=== PATIENT | female | born 1975 | race Caucasian/White ===

== ENCOUNTER 2023-11-03 06:13 | Inpatient (IN) | payer OTHER ==
[~2023-11-03] VITALS: Ht 170.2 cm; Wt 81.2 kg
[2023-11-03 07:17] LABS: BASOPHILS # (AUTO) 0.1 K/uL (0.00-0.22); BASOPHILS % (AUTO) 0.8 % (0.0-2.0); EOSINOPHILS # (AUTO) 0.4 K/uL (0-0.4); EOSINOPHILS % (AUTO) 6.1 % (0.0-4.0); HEMATOCRIT 37.4 % (36-48); HEMOGLOBIN 12.8 g/dL (12.0-16.0); LYMPHOCYTES # (AUTO) 3.4 K/uL (2.5-16.5); LYMPHOCYTES % (AUTO) 49.5 % (20.5-51.1); MEAN CORPUSCULAR HEMOGLOBIN 29 pg (27-31); MEAN CORPUSCULAR HGB CONC 34 g/dL (33-37); MEAN CORPUSCULAR VOLUME 85.2 fL (80-94); MONOCYTES # (AUTO) 0.4 K/uL (0.8-1.0); MONOCYTES % (AUTO) 5.1 % (1.7-9.3); NEUTROPHILS # (AUTO) 2.7 K/uL (1.8-7.7); NEUTROPHILS % (AUTO) 38.5 % (42.2-75.2); PLATELET COUNT (AUTO) 262 K/uL (140-450); RED BLOOD CELL COUNT(AUTO) 4.39 MIL/uL (4.20-5.40); RED CELL DISTRIBUTION WIDTH 12.5 % (11.6-13.7); WHITE BLOOD COUNT (AUTO) 6.9 K/uL (4.8-10.8)
[2023-11-03] MEDS: fentaNYL citrate 0.05 MG/ML VIAL ONE (07:48)
[2023-11-03] MEDS: MIDAZOLAM 2 MG/2 ML VIAL ONE (07:48)
[2023-11-03 08:03] LABS: CALCIUM 9.1 mg/dL (8.5-10.1); CARBON DIOXIDE 28.5 mmol/L (21-32); CREATININE 0.9 mg/dL (0.6-1.3); POTASSIUM 3.5 mmol/L (3.5-5.1)
[2023-11-03 08:10] LABS: ALBUMIN 3.5 g/dL (3.4-5.0); TOTAL BILIRUBIN 0.6 mg/dL (0.0-1.0)
[2023-11-03] MEDS ORDERED: SEVOFLURANE 250 ML BTL INH ONE (08:10)
[2023-11-03] MEDS: LIDOCAINE MPF 2% 100 MG/5 ML VIAL INJ ONE (08:39)
[2023-11-03] MEDS: ROCURONIUM 50 MG/5 ML VIAL IV ONE ×3 (08:39→09:38)
[2023-11-03] MEDS: PROPOFOL 200 MG/20 ML VIAL IV ONE (08:39)
[2023-11-03] MEDS: METOCLOPRAMIDE 10 MG/2 ML INJ VIAL ONE (08:40)
[2023-11-03] MEDS: ONDANSETRON 4 MG/2 ML VIAL ONE (08:40)
[2023-11-03] MEDS: KETOROLAC 30 MG/ML VIAL ONE (08:40)
[2023-11-03] MEDS: MEDS-TO-BEDS MC SCH (09:00)
[2023-11-03] MEDS: GLYCOPYRROLATE 0.2 MG/ML VIAL ONE (09:02)
[2023-11-03] MEDS: EPINEPHrine 1 MG/ML AMP ONE (09:05)
[2023-11-03] MEDS ORDERED: diphenhydrAMINE 50 MG/ML VIAL IVP PRN (09:40)
[2023-11-03] MEDS ORDERED: MEPERIDINE 25 MG/ML SYR IVP PRN (09:40)
[2023-11-03] MEDS: LACTATED RINGERS 1,000 ML IV SCH (09:40)
[2023-11-03] MEDS ORDERED: ONDANSETRON 4 MG/2 ML VIAL IVP PRN (09:40)
[2023-11-03] MEDS: HYDROmorphone PFS 2 MG/ML SYR ONE (10:48)
[2023-11-03] MEDS: HYDROmorphone 1 MG/ML AMP IVP PRN (10:48)
[2023-11-03 11:40] VITALS: BP 130/70; PULSE 79; RESP 18; TEMP 97; O2SAT 96
[2023-11-03 16:00] VITALS: BP 131/67; PULSE 71; RESP 18; TEMP 97.3; O2SAT 96
[2023-11-03 20:00] VITALS: BP 133/62; PULSE 80; RESP 18; TEMP 98.3; O2SAT 94
[2023-11-04 08:00] VITALS: BP 134/72; PULSE 80; PULSE 89; RESP 18; TEMP 97.5; TEMP 98.3; O2SAT 94; O2SAT 97
[2023-11-04] MEDS: oxyCODONE/APAP 5/325 MG 1 TAB TAB PO PRN (11:31)
[2023-11-04 16:00] VITALS: BP 136/70; PULSE 80; RESP 18; TEMP 98; O2SAT 97
[2023-11-04 20:00] VITALS: BP_SYST 136; BP_SYST 146; BP_DIAS 70; BP_DIAS 75; PULSE 85; RESP 18; TEMP 99.3; O2SAT 94
[2023-11-04 20:48] VITALS: PULSE 85; RESP 18; O2SAT 94
[2023-11-04] MEDS: APAP/BUTAL/CAFF 325/50/40 MG 1 TAB PO PRN (22:28)
[2023-11-05 04:00] VITALS: BP 135/75; PULSE 88; RESP 18; TEMP 97.6; O2SAT 93
[2023-11-05 08:00] VITALS: PULSE 63; RESP 18; TEMP 99.2; O2SAT 94
[2023-11-05] MEDS: IBUPROFEN 800 MG TAB PO SCH (08:09)
[2023-11-05 19:57] VITALS: PULSE 86; RESP 18; O2SAT 94
[2023-11-05 20:00] VITALS: BP 142/76; PULSE 86; RESP 18; TEMP 97.3; O2SAT 94
[2023-11-06 04:00] VITALS: BP 147/80; PULSE 67; RESP 18; TEMP 96.7; O2SAT 96
[2023-11-06 08:00] VITALS: PULSE 74; RESP 18; TEMP 98.1; O2SAT 95
[2023-11-06] MEDS ORDERED: ACET-9535 PO (13:18)
[2023-11-06] MEDS ORDERED: IBUP-2213 PO (13:18)
[2023-11-06] MEDS ORDERED: ONDA-188 PO (13:18)
[2023-11-06] MEDS: ONDANSETRON 4 MG/2 ML VIAL IVP SCH (13:22)
[2023-11-06 13:26] VITALS: BP 155/78; PULSE 74; RESP 18; TEMP 98.1
[2023-11-06] MEDS ORDERED: MIRABULK PO (13:30)
== END 2023-11-06 15:52 | DRG 519 ==
LOC: MMU 06:13 → MOR 06:13 → OBSVTOIN 06:13 → MTU 06:13 → INTOOBSV 06:13 → UNDOADMOB 06:13 → EDSTATUS 07:30 → MOR 11:40 → MTU 11:40 → MMU 11:40 → MOR 11:41 → MTU 11:41
PROVIDERS: ADMIT Obstetrics & Gynecology; ATTEND Obstetrics & Gynecology
PROC: 0UT90ZZ Resection of Uterus, Open Approach (ICD-10-PCS; principal; 2023-11-03 07:30)
DX: D25.9 Leiomyoma of uterus, unspecified (principal); D53.9 Nutritional anemia, unspecified; K59.09 Other constipation; Z98.891 History of uterine scar from previous surgery
CPT/HCPCS: 36415; 80053; 85025; 86886; 86900; 86901; 87081; 88307; 93005; J0171; J0690; J1170; J1885; J2001; J2250; J2405; J2704; J2765; J3010; J3490; J7060; J7120